=== PATIENT | female | born 1945 | race Caucasian/White ===

== ENCOUNTER 2023-12-04 04:00 | Emergency (ER) | payer SELFPAY ==
[2023-12-04] VITALS (15 sets, daily range): BP systolic 128–159; BP diastolic 68–123; PULSE 52–128; RESP 10–22; TEMP 36.1; O2SAT 96–100
[2023-12-04 04:29] LABS: BE (Venous) -1 mmol/L (-2-3); HCO3 (Venous) 24 mmol/L (23-28); O2 Sat (Venous) 93 %; TCO2 (Venous) 21 mmol/L (24-29); pCO2 (Venous) 41 mmHg (41-51); pH (Venous) 7.38 (7.31-7.41); pO2 (Venous) 67 mmHg
[2023-12-04 04:53] LABS: Abs Immature Grans 0.02 10^3/uL (0.0-0.06); Absolute Basophil Count 0.03 10^3/uL (0.0-0.2); Absolute Eosinophil Count 0.07 10^3/uL (0.0-0.7); Absolute Lymphocyte Count 1.86 10^3/uL (1.2-3.4); Absolute Monocyte Count 0.48 10^3/uL (0.1-0.8); Absolute Neutrophil Count 2.25 10^3/uL (1.2-6.7); Basophils % 0.6 %; Eosinophils % 1.5 %; HCT 43.2 % (36.0-46.0); HGB 15.1 g/dL (11.2-15.7); Immature Grans % 0.4 %; Lymphocytes % 39.5 %; MCH 32.6 pg (27.0-33.0); MCV 93 fL (80-95); MPV 9.5 fL (8.0-11.0); Monocytes % 10.2 %; Neutrophils % 47.8 %; Platelet Count 177 10^3/uL (130-400); RBC 4.63 10^6/uL (3.93-5.22); RDW 15.1 % (11.7-14.6); RDW-SD 51.8 fL; WBC 4.71 10^3/uL (4.4-10.8)
[2023-12-04 05:00] LABS: ALT 19 U/L (14-59); AST 28 U/L (15-37); Albumin 3.3 g/dL (3.4-5.0); Alkaline Phosphatase 59 U/L (46-116); Anion Gap 8.5 mmol/L (3-11); BUN 12 mg/dL (7-18); Bilirubin, Total 0.94 mg/dL (0.2-1.0); CO2 26.5 mmol/L (21.0-32.0); CREATININE 0.9 mg/dL (0.55-1.02); Calcium 8.3 mg/dL (8.5-10.1); Chloride 108 mmol/L (98-107); ETHANOL BLOOD 221.4 mg/dL (<10); Estimated GFR 65.03 (mL/min/1.73m2); Glucose 104 mg/dL (74-106); Sodium 143 mmol/L (136-145); Total Protein 6.2 g/dL (6.4-8.2)
[2023-12-04 05:03] LABS: PTT Activated 22.9 sec (23.6-32.8); Prothrombin Time 10.3 sec (9.1-11.1)
--- NOTE | 2023-12-04 05:08 | W.ED.GENAD ---
Discharge Plan Disposition Patient Disposition: Home Condition: Stable Discharge Details Clinical Impression: Alcohol intoxication Primary Care Provider: Unknown,Unknown ED Provider: Morris Banks Home Meds and New Rx's Prescriptions: No Action Eliquis 5 mg tablet 5 mg PO BID Discharge Instructions Instructions: Minor Head Injury, Adult ED Additional Instructions: At this time you have an elevated alcohol level. Your CAT scans show no evidence of bleeds in your brain, stroke, trauma to your chest, or fractures. We have attempted to call the numbers you provided, unfortunately no one is able to pick you up at this time. For your safety we will recommend transition to the sobriety area with the state police. You do have evidence of contusion and mild bruises from your fall. Please take Tylenol as needed for pain. You will likely be sore over the next day or so. Please do your best to cut down on alcohol intake. If you notice any worsening of your symptoms, or any new symptoms such as vomiting, diarrhea, fever, chills, shortness of breath, chest pain, numbness, weakness, or fainting , please return immediately to the emergency department for reevaluation. Please follow up with your primary care provider as soon as possible for reassessment and reevaluation. As always, it was a pleasure participating in your medical care today. HPI General Date/Time Provider Initiated Documentation: 12/04/23 04:08. HPI Narrative: This is a 78-year-old female who is new to our facility with a past medical history of atrial fibrillation on Eliquis, hypertension on metoprolol and amlodipine, depression, irritable bowel syndrome, osteoarthritis, [place] syndrome, obstructive sleep apnea, who presents today for medical evaluation after a fall. Patient reports that she is currently going through divorce, and tonight drank quite enough alcohol. She is not willing to give more specifics. She was found driving down the wrong direction of the interstate, she was pulled over by police. While doing the sobriety test she was standing and holding onto the vehicle, when she let go of the vehicle she then fell down from a standing position on the angled side of the embankment and landed on her right head right shoulder and right chest. She had no loss of consciousness. There is no motor vehicle accident prior to this. She denies any complaints at this time. She was placed in a c-collar and brought to the ER by EMS for further assessment. She states she has been taking her anticoagulant as directed. She denies any other modifying factors. She denies any drug use. No other complaints at this time. Related Data Home Medications ?Medication ?Instructions ?Recorded ?Confirmed apixaban 5 mg tablet (Eliquis) 5 mg PO BID 12/04/23 12/04/23 Allergies Allergy/AdvReac Type Severity Reaction Status Date / Time meperidine (From Demerol) Allergy Unknown Verified 12/04/23 04:08 morphine Allergy Unknown Verified 12/04/23 04:08 General Stated Complaint: Fall/Non TraumaCriteria KENDALL: 3 Review of Systems All systems reviewed & are unremarkable except as noted in HPI and below Exam Narrative Exam Narrative: 1.Const: Well-nourished, Well-developed, appearing stated age 2.Eyes: PERRL, no conjunctival injection, and symmetrical lids. 3.ENT: Atraumatic external nose and ears. Moist MM. Neck: Symmetric, trachea midline, No thyromegaly. There is no evidence of raccoon eyes, robertson sign, CSF rhinorrhea, mastoid tenderness, cranial crepitus, hemotympanum, exophthalmos, or hyphema. Patient demonstrates intact dentition with no signs of tooth avulsion or fracture, no signs of jaw deformity, no evidence of a LeFort's fracture, with an intact palate, nose and orbital region. There is no evidence of a nasal septal hematoma. No proptosis. Jaw closes symmetrically. Airway is clear. 4.CVS: Regular rate and rhythm, Normal s1 and s2. No murmurs, carotid bruits, rubs, or gallops. Radial pulses 2+ bilaterally and symmetric. Dorsalis pedis pulses 2+ bilaterally and symmetric. 2+ capillary refill. No evidence of distant heart sounds. No extremity edema. No evidence of gross hemorrhage. 5.RESP: Airway clear, no obstructions. No abrasions or ecchymosis. Chest movement symmetric with respirations. No chest wall tenderness. Trachea midline. No crepitus. No step offs. No paradoxical movements. Lungs are clear to auscultation bilaterally. No rales, rhonchi, wheezing or stridor. Breath sound symmetric. No Sucking chest wounds. No clinical evidence of significant chest trauma. 6.GI: Soft, nondistended, nontender. Bowel tones normoactive. No masses or organomegaly. No ecchymosis or abrasions. No periumbilical ecchymosis or seatbelt sign. No flank or CVA tenderness. No clinical signs of significant trauma. G No clinical evidence of significant abdominal trauma. 7.MSK: No gross deformities or discolorations or lesions. Tolerates full range of motion of extremities without tenderness. All compartments of upper and lower extremities are soft. Minimal tenderness over the right shoulder, as well as the right ribs. Hips are stable. Vascular exam demonstrates brisk capillary refill and intact pulses in all extremities. Pelvic exam demonstrates a stable pelvis, nontender to lateral compression and palpation of symphysis pubis. No pain with logroll of the legs bilaterally. No clinical evidence of significant musculoskeletal trauma. No midline cervical thoracic or lumbar spine tenderness. 8.Skin: Warm, Dry. No rashes or lesions. 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 Sensation grossly intact, no focal neurologic deficits. 10.Psych: (AAO) x3. Appropriate mood and affect, although she does appear slightly intoxicated. Course Vital Signs Vital signs: Vital Signs Temperature 36.1 C L 12/04/23 03:59 Pulse 113 H 12/04/23 03:59 Respiratory Rate 13 12/04/23 03:59 Blood Pressure 153/106 H 12/04/23 03:59 Pulse Oximetry 100 12/04/23 03:59 Temperature 36.1 C L 12/04/23 03:59 Temperature Source Temporal Artery Scan 12/04/23 03:59 Pulse 113 H 12/04/23 03:59 Respiratory Rate 13 12/04/23 03:59 Respiratory Effort Normal 12/04/23 04:09 Blood Pressure 153/106 H 12/04/23 03:59 Blood Pressure Position Supine 12/04/23 03:59 Pulse Oximetry 100 12/04/23 03:59 Oxygen Delivery Method Room Air 12/04/23 03:59 Oxygen Flow Rate 0 12/04/23 03:59 Pain Level 0 12/04/23 03:59 Lab/Test Results Lab/Test Results: Laboratory Tests Range/Units 12/04/23 04:20 WBC (4.4-10.8) 10^3/uL 4.71 RBC (3.93-5.22) 10^6/uL 4.63 Hgb (11.2-15.7) g/dL 15.1 Hct (36.0-46.0) % 43.2 MCV (80-95) fL 93 MCH (27.0-33.0) pg 32.6 MCHC (32.0-36.0) % 35.0 RDW (11.7-14.6) % 15.1 H Plt Count (130-400) 10^3/uL 177 MPV (8.0-11.0) fL 9.5 Immature Gran % % 0.4 Neutrophils % % 47.8 Lymphocytes % % 39.5 Monocytes % % 10.2 Eosinophils % % 1.5 Basophils % % 0.6 Nucleated RBC % (0.0-0.3) % 0.0 Absolute Neutrophils (1.2-6.7) 10^3/uL 2.25 Absolute Lymphocytes (1.2-3.4) 10^3/uL 1.86 Absolute Monocytes (0.1-0.8) 10^3/uL 0.48 Absolute Eosinophils (0.0-0.7) 10^3/uL 0.07 Absolute Basophils (0.0-0.2) 10^3/uL 0.03 VBG pH (7.31-7.41) 7.38 VBG pCO2 (41-51) mmHg 41 VBG pO2 mmHg 67 VBG HCO3 (23-28) mmol/L 24 VBG Total CO2 (24-29) mmol/L 21 L VBG O2 Saturation % 93 VBG Base Excess (-2-3) mmol/L -1 Medical Decision Making This is a 78-year-old female who is new to our facility with a past medical history of atrial fibrillation on Eliquis, hypertension on metoprolol and amlodipine, depression, irritable bowel syndrome, osteoarthritis, [place] syndrome, obstructive sleep apnea, who presents today for medical evaluation after a fall. Patient reports that she is currently going through divorce, and tonight drank quite enough alcohol. She is not willing to give more specifics. She was found driving down the wrong direction of the interstate, she was pulled over by police. While doing the sobriety test she was standing and holding onto the vehicle, when she let go of the vehicle she then fell down from a standing position on the angled side of the embankment and landed on her right head right shoulder and right chest. She had no loss of consciousness. There is no motor vehicle accident prior to this. She denies any complaints at this time. She was placed in a c-collar and brought to the ER by EMS for further assessment. She states she has been taking her anticoagulant as directed. She denies any other modifying factors. She denies any drug use. No other complaints at this time. Exam demonstrates well-appearing but slightly intoxicated female, mild bruising over her right head but no hematoma. Minimal shoulder achiness, mild right-sided rib tenderness, no hip tenderness or displacement. No gross deformities. Concern for rib fracture, and contusions in the shoulder. Obviously there is also concern for potential head bleed secondary to her blood thinner use and the mechanism. No other signs of trauma at this time. Doubt infection, I suspect the cause of her mild confusion at this time is an intracranial etiology or alcohol intoxication. Will get CT imaging to further define any signs of trauma, will gently rehydrate, monitor closely and reassess. 6:16 AM Laboratory workup has returned, no white count bandemia or left shift. Electrolytes stable, VBG shows no acidosis or hypercarbia. Renal function normal. Alcohol level is notably elevated at 221, acetaminophen and salicylate levels are normal. CT scan of the head neck chest abdomen pelvis and face is negative for acute process or fracture per virtual radiology. We did get the patient up, and she ambulated well. Secondary trauma survey shows no new tenderness. She moves all extremities well, no focal tenderness over ribs chest shoulders. She demonstrates normal neurologic exam otherwise but does appear slightly intoxicated still. She does ambulate well, no ataxic gait, no focal neurologic deficits. At this stage patient is medically cleared however she is still intoxicated. Patient states that she does not have anyone that could help her come bring her home. She is not willing to provide any other additional names or numbers for contact she resides in [facility]. Police are here at this time, and will take her to the sobriety area. Patient at this time demonstrates hemodynamic stability, no evidence of stroke or acute process. No evidence of intracranial bleed on CT imaging. Patient is intoxicated though. Discussed red flags which to return. Patient will be discharged in police custody. I have extensively reviewed the treatment plan and discharge instructions with the patient. I have addressed all patient concerns at this time. The patient was made aware of what symptoms to monitor for that would warrant a return to the emergency department. Discussed the plan with the patient, they demonstrate verbal understanding and agreement with our assessment and plan at this time. The documentation in this chart was dictated using [employer] dictation software. Please excuse any dictation errors. FINDINGS: Lungs: Mild lingular ground-glass which is nonspecific. Few scattered right lower lobe granuloma. Atelectasis/scarring of the bilateral lower lung pritchett. Pleural spaces: Unremarkable. No pneumothorax. No pleural effusion. Heart: Fluid within the pericardial recesses. Coronary arteries: No significant coronary calcified atherosclerotic disease. Lymph nodes: Unremarkable. No enlarged lymph nodes. Vasculature: Calcified atherosclerotic disease of the visualized aorta and its major thoracic branches. Bones/joints: Unremarkable. No acute fracture. Soft tissues: Unremarkable. IMPRESSION: No acute thoracic findings. Additional findings as above. FINDINGS: Liver: Normal. No mass. Gallbladder and biliary ducts: Normal. No calcified stones. No ductal dilation. Pancreas: Mild atrophy of the pancreas. Spleen: Normal. No splenomegaly. Adrenal glands: Normal. No mass. Kidneys and ureters: Symmetric bilateral renal cortical atrophy. Stomach and bowel: Moderate to severe colonic stool burden. Appendix: No evidence of appendicitis. Intraperitoneal space: Unremarkable. No free air. No significant fluid collection. Vasculature: Atherosclerotic disease of the abdominal aorta and its major branches. Lymph nodes: Unremarkable. No enlarged lymph nodes. Urinary bladder: Bladder is distended. Reproductive: Unremarkable as visualized. Bones/joints: Unremarkable. No acute fracture. Soft tissues: Unremarkable. IMPRESSION: 1. No acute intra-abdominal findings. 2. Additional findings as above. Thank you for allowing us to participate in the care of your patient. Dictated and Authenticated by: Kenneth Morrow DO 12/04/2023 5:54 AM Eastern Time ([place] & [place]) FINDINGS: Brain: Periventricular white matter lucencies compatible with chronic microvascular ischemic changes. 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 No intracranial hemorrhage. No mass effect or midline shift. Cerebral ventricles: The ventricles and sulci are prominent compatible with age-related involutional changes. Paranasal sinuses: Visualized sinuses are unremarkable. No fluid levels. Mastoid air cells: Visualized mastoid air cells are well aerated. Bones: Unremarkable. No acute fracture. Soft tissues: Unremarkable. IMPRESSION: No acute intracranial findings. FINDINGS: No acute fracture or dislocation. The orbits and globes are intact bilaterally.The mandible is intact. The alignment of the temporomandibular joints is maintained bilaterally. IMPRESSION: No acute fracture. FINDINGS: Bones: Normal alignment. No acute fracture or subluxation. Multilevel facet arthritis on the left. Soft tissues: Unremarkable. IMPRESSION: No fracture. Thank you for allowing us to participate in the care of your patient. Dictated and Authenticated by: Álvaro Fernandez MD 12/04/2023 5:59 AM Eastern Time ([place] & [place]) Quality:SDOH Health Related Social Needs: No Data to Display PFSH All Active Problems (Updated 12/04/23 @ 06:21 by Morris aBnks DO) Alcohol intoxication (Acute) Social History Smoking risk assessment performed?: No PAWSS Have you Been Recently Intoxicated or Drunk Within the Last 30 days?: Yes Have you Ever Experienced Previous Episodes of Alcohol Withdrawal?: Unable to Obtain Have you ever Experienced Withdrawal Seizures?: Unable to Obtain Have you ever Experienced Delirium Tremens(DT)s?: Unable to Obtain Have you ever undergone Alcohol Rehabilitation Treatment (i.e, inpt ot outpatient treatment programs)?: Unable to Obtain Have you ever Experienced Blackouts?: Unable to Obtain Have you ever Combined Alcohol with other Downers within the last 90 days?: Unable to Obtain Have you ever Combined Alcohol with any other Substance of Abuse during the last 90 days?: Unable to Obtain Positive Blood Alcohol level on Presentation? [PCS.BAL]: Unable to Obtain Evidence of Increased Autonomic Activity (i.e. HR>120, tremor, sweating, agitation, nausea)?: Unable to Obtain Result: 1
[2023-12-04 05:23] LABS: Acetaminophen < 2 ug/mL (10-30); Salicylate < 2.8 mg/dL (<2.8)
[2023-12-04] MEDS: Normal Saline - Diluent 50 ML VIAL IJ (05:24)
[2023-12-04] MEDS: Omnipaque 350 MG/ML 100 ML BTL IJ (05:24)
--- NOTE | 2023-12-04 05:25 | DI.CT_ITS ---
Exam(s) CT CHEST/ABD/PEL W EXAM: CT CHEST/ABD/PEL W CLINICAL HISTORY: trauma, fall, thinners, hit right chest/abd. TECHNIQUE: Imaging Protocol: Axial computed tomography images with coronal and sagittal reformatted images were created and reviewed CONTRAST MATERIAL: Intravenous: Omnipaque 350 Contrast volume:100 ml Oral: None COMPARISON: No exams were available for comparison FINDINGS: CHEST: LUNGS: There are mild benign-appearing subpleural increased markings in lateral basal segment of the right lower lobe. No prominent lung contusion or pleural effusion or pneumothorax. There are a few benign calcified granulomas in the right lung also noted.. Mild increased markings also noted in the superior lingular segment of the left lung. No significant focal findings in the trachea and mainst em bronchi. MEDIASTINUM: No evidence of sternal fracture nor mediastinal hematoma. No intrathoracic adenopathy. Visualized thyroid appears unremarkable. CARDIAC: Mild cardiomegaly. No pericardial effusion.Thoracic aorta appears unremarkable. Normal siz e. No dissection. OSSEOUS: No rib fractures evident. No vertebral compressionfractures. No significant osseous lesion s.. ABDOMEN: There is no ascites. There is no evidence of mesenteric nor bowel wall hematoma. LIVER: Normal size. No laceration. No lesions. No dilated intrahepatic ducts. GALLBLADDER/BILIARY: No obvious gallbladder pathology. CBD is not dilated. PANCREAS: No evidence of pancreatic mass nor dilatation of the pancreatic duct. SPLEEN: Normal size. No lacerations. No lesions. Splenic and portal veins are patent. ADRENALS: There are no significant adrenal masses. KIDNEYS: No lacerations nor subcapsular hematomas.. No ominous solid lesions. Small sub cm benign c yst in the posterior cortex left kidney which does not require workup. Even smaller benign cyst in t he lateral cortex of the right kidney noted, also not requiring further imaging workup. ABDOMINAL AORTA: Intact. Abdominal aorta is not enlarged. Iliac arteries unremarkable. Common femo ral arteries unremarkable. LYMPH NODES: There is no retroperitoneal nor paraaortic adenopathy. ABDOMINAL WALL: No evidence of significant anterior abdominal wall nor inguinal hernia. No evidence of subcutaneous bruising/hematomas nor chest wall/abdominal wall hematomas. GI: There is no evidence of bowel obstruction.No evidence of bowel wall hematoma. PELVIS: LYMPH NODES: There is no intrapelvic nor inguinal adenopathy. GI: No evidence of appendicitis.No evidence of sigmoid diverticulitis. URINARY BLADDER: Intact-unremarkable. REPRODUCTIVE: Uterus size age-appropriate. No abnormal adnexal masses and no free fluid in the pelvi s. OSSEOUS: No evidence of pelvic/sacral fractures. No hip fractures. SI joints unremarkable. Degener ative facet arthropathy noted in lower lumbar spine. Mild disc space narrowing L5-S1. No listhesis. No pars defects. Also some disc space narrowing at L2-3. No fracture IMPRESSION: 1. No significant acute trauma sequelae in the chest, abdomen, and pelvis. 2. Mild increased benign-appearing subpleural markings noted in the lateral basal segment right lower lobe and superior lingular segment of the left lung. No pleural effusions. No pneumothorax. No ri b fractures. 3. Incidentally noted is some air within central venous structures most probably related to the IV co ntrast injection. First read by [facility]. RADIATION DOSE DELIVERED: Total DLP DATA REPOSITORY: All CT scans at this facility are submitted to the National Radiology Data Registry (NRDR) Dose Index Registry (DIR) with the [employer] (A[employer]). RADIATION OPTIMIZATION: All CT scans at this facility use at least one of these dose optimization te chniques: automated exposure control; mA and/or kV adjustment per patient size (includes targeted exa ms where dose is matched to clinical indication); or iterative reconstruction.
--- NOTE | 2023-12-04 05:26 | DI.CT_ITS ---
Exam(s) CT HEAD CERV SPINE FACIAL WO EXAM: CT HEAD CERV SPINE FACIAL WO CLINICAL HISTORY: fall, on thinners, eval for bleed. TECHNIQUE: Imaging Protocol: Axial computed tomography images with coronal and sagittal reformatted images were created and reviewed COMPARISON: No exams were available for comparison FINDINGS: There is artifact from the patient's dental work. CT Head: Ventricles and Extra axial spaces: Normal in size and morphology for the patient's age. Hemorrhage: None. Cerebral parenchyma: There is a lacunar infarct in the right basal ganglia. Subtle areas of decrease d attenuation are seen in the white matter consistent chronic microvascular ischemic disease. No mid line shift is present. Midline shift: None. Brainstem/Cerebellum: Normal. Calvarium: Normal. Visualized Paranasal sinuses/Mastoids: Clear. Soft Tissues: Unremarkable. CT Face: Facial Bones: No definite fracture is noted in facial bones. Sinuses and Mastoids: Unremarkable. Globes, extraocular muscles, optic nerves and retrobulbar fat: Normal. Upper aerodigestive tract: Normal. Mandible and bilateral temporomandibular joints: Normal. Soft tissues: Normal. CT Cervical Spine: Bones: No acute fracture or subluxation. Age-appropriate degenerative changes are seen in the cervica l spine. Soft Tissues: Unremarkable. Lung Apices: Clear. IMPRESSION: 1. No acute intracranial process. 2. No acute fracture or subluxation in the cervical spine. 3. No acute facial fracture. RADIATION DOSE DELIVERED: Total DLP DATA REPOSITORY: All CT scans at this facility are submitted to the National Radiology Data Registry (NRDR) Dose Index Registry (DIR) with the [employer] ([employer]). RADIATION OPTIMIZATION: All CT scans at this facility use at least one of these dose optimization te chniques: automated exposure control; mA and/or kV adjustment per patient size (includes targeted exa ms where dose is matched to clinical indication); or iterative reconstruction.
[2023-12-04] MEDS: Normal Saline 500 ML IV (05:27)
--- NOTE | 2023-12-04 05:29 | NUR.NOTE ---
Patient has a external urinary catheter for voiding purposes.
--- NOTE | 2023-12-04 05:55 | DI.VRAD_ITS ---
PROCEDURE INFORMATION: Exam: CT Chest With Contrast; Diagnostic Exam date and time: 12/04/2023 4:59 AM Age: 78 years old Clinical indication: Injury or trauma; Fall and other: Hit right chest/abd; Generalized; Blunt trauma (contusions or hematomas); Injury date: 12/04/23; Patient HX: Trauma, fall, thinners, hit right chest/abd TECHNIQUE: Imaging protocol: Diagnostic computed tomography of the chest with contrast. 3D rendering (Not supervised by radiologist): MIP and/or 3D reconstructed images were created by the technologist. Radiation optimization: All CT scans at this facility use at least one of these dose optimization techniques: automated exposure control; mA and/or kV adjustment per patient size (includes targeted exams where dose is matched to clinical indication); or iterative reconstruction. Contrast material: [id number]; Contrast volume: 100 ml; Contrast route: INTRAVENOUS (IV); COMPARISON: CT HEAD CERV SPINE FACIAL WO 12/04/2023 4:52 AM FINDINGS: Lungs: Mild lingular ground-glass which is nonspecific. Few scattered right lower lobe granuloma. Atelectasis/scarring of the bilateral lower lung pritchett. Pleural spaces: Unremarkable. No pneumothorax. No pleural effusion. Heart: Fluid within the pericardial recesses. Coronary arteries: No significant coronary calcified atherosclerotic disease. Lymph nodes: Unremarkable. No enlarged lymph nodes. Vasculature: Calcified atherosclerotic disease of the visualized aorta and its major thoracic branches. Bones/joints: Unremarkable. No acute fracture. Soft tissues: Unremarkable. IMPRESSION: No acute thoracic findings. Additional findings as above. PROCEDURE INFORMATION: Exam: CT Abdomen And Pelvis With Contrast Exam date and time: 12/04/2023 4:59 AM Age: 78 years old Clinical indication: Injury or trauma; Fall and other: Hit right chest/abd; Generalized; Blunt trauma (contusions or hematomas); Injury date: 12/04/23; Patient HX: Trauma, fall, thinners, hit right chest/abd TECHNIQUE: Imaging protocol: Computed tomography of the abdomen and pelvis with contrast. 3D rendering (Not supervised by radiologist): MIP and/or 3D reconstructed images were created by the technologist. Radiation optimization: All CT scans at this facility use at least one of these dose optimization techniques: automated exposure control; mA and/or kV adjustment per patient size (includes targeted exams where dose is matched to clinical indication); or iterative reconstruction. Contrast material: [id number]; Contrast volume: 100 ml; Contrast route: INTRAVENOUS (IV); COMPARISON: No relevant prior studies available. FINDINGS: Liver: Normal. No mass. Gallbladder and biliary ducts: Normal. No calcified stones. No ductal dilation. Pancreas: Mild atrophy of the pancreas. Spleen: Normal. No splenomegaly. Adrenal glands: Normal. No mass. Kidneys and ureters: Symmetric bilateral renal cortical atrophy. Stomach and bowel: Moderate to severe colonic stool burden. Appendix: No evidence of appendicitis. Intraperitoneal space: Unremarkable. No free air. No significant fluid collection. Vasculature: Atherosclerotic disease of the abdominal aorta and its major branches. Lymph nodes: Unremarkable. No enlarged lymph nodes. Urinary bladder: Bladder is distended. Reproductive: Unremarkable as visualized. Bones/joints: Unremarkable. No acute fracture. Soft tissues: Unremarkable. IMPRESSION: 1. No acute intra-abdominal findings. 2. Additional findings as above. Dictated and Authenticated by: Kenneth Morrow MD. Ordering:JACK Caceres MD
--- NOTE | 2023-12-04 05:59 | DI.VRAD_ITS ---
PROCEDURE INFORMATION: Exam: CT Head Without Contrast Exam date and time: 12/04/2023 4:52 AM Age: 78 years old Clinical indication: Injury or trauma; Blunt trauma (contusions or hematomas); Forehead; Injury date: 12/04/23; Patient HX: Fall, on thinners, eval for bleed TECHNIQUE: Imaging protocol: Computed tomography of the head without contrast. Radiation optimization: All CT scans at this facility use at least one of these dose optimization techniques: automated exposure control; mA and/or kV adjustment per patient size (includes targeted exams where dose is matched to clinical indication); or iterative reconstruction. COMPARISON: No relevant prior studies available. FINDINGS: Brain: Periventricular white matter lucencies compatible with chronic microvascular ischemic changes. 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 No intracranial hemorrhage. No mass effect or midline shift. Cerebral ventricles: The ventricles and sulci are prominent compatible with age-related involutional changes. Paranasal sinuses: Visualized sinuses are unremarkable. No fluid levels. Mastoid air cells: Visualized mastoid air cells are well aerated. Bones: Unremarkable. No acute fracture. Soft tissues: Unremarkable. IMPRESSION: No acute intracranial findings. PROCEDURE INFORMATION: Exam: CT Maxillofacial Without Contrast Exam date and time: 12/04/2023 4:52 AM Age: 78 years old Clinical indication: Injury or trauma; Blunt trauma (contusions or hematomas); Forehead; Injury date: 12/04/23; Patient HX: Fall, on thinners, eval for bleed TECHNIQUE: Imaging protocol: Computed tomography of the face without contrast. Radiation optimization: All CT scans at this facility use at least one of these dose optimization techniques: automated exposure control; mA and/or kV adjustment per patient size (includes targeted exams where dose is matched to clinical indication); or iterative reconstruction. COMPARISON: No relevant prior studies available. FINDINGS: No acute fracture or dislocation. The orbits and globes are intact bilaterally.The mandible is intact. The alignment of the temporomandibular joints is maintained bilaterally. IMPRESSION: No acute fracture. PROCEDURE INFORMATION: Exam: CT Cervical Spine Without Contrast Exam date and time: 12/04/2023 4:52 AM Age: 78 years old Clinical indication: Injury or trauma; Blunt trauma (contusions or hematomas); Forehead; Injury date: 12/04/23; Patient HX: Fall, on thinners, eval for bleed TECHNIQUE: Imaging protocol: Computed tomography of the cervical spine without contrast. Radiation optimization: All CT scans at this facility use at least one of these dose optimization techniques: automated exposure control; mA and/or kV adjustment per patient size (includes targeted exams where dose is matched to clinical indication); or iterative reconstruction. COMPARISON: No relevant prior studies available. FINDINGS: Bones: Normal alignment. No acute fracture or subluxation. Multilevel facet arthritis on the left. Soft tissues: Unremarkable. IMPRESSION: No fracture. Dictated and Authenticated by: Álvaro Fernandez MD. Ordering:JACK Caceres MD
[2023-12-04 06:14] LABS: Bilirubin Negative (Negative); Blood Negative (Negative); Clarity Sl Cloudy (Clear); Glucose Negative (Negative); Ketones Negative (Negative); Leukocyte Esterase Trace (Negative); Nitrite Negative (Negative); Specific Gravity 1.015 (1.005-1.025); Urobilinogen 0.2 mg/dL (Up to 0.2)
[2023-12-04 06:19] LABS: Bacteria Rare HPF (Negative); C & S Indicated? No; Casts Negative LPF (Negative); Crystals Negative HPF (Negative); Epithelial Cells Rare HPF (Negative); Mucus Trace (Negative); RBC 0-2 HPF (0-2)
[2023-12-04 06:26] LABS: *AMPHETAMINES SCREEN URINE Negative (Negative); *BARBITURATES SCREEN URINE Negative (Negative); *BENZODIAZEPINES SCREEN URINE Negative (Negative); Cannabinoids THC Negative (Negative); Cocaine Screen,Urine Negative (Negative); METHADONE URINE SCREEN Negative (Negative); OPIATES URINE SCREEN Negative (Negative)
[2023-12-04 06:27] LABS: Tricyclic Antidepressants Negative (Negative)
== END 2023-12-04 07:12 | disposition home or self-care (01) ==
PROVIDERS: Emergency Provider Student in an Organized Health Care Education/Training Program
DX: F10.920 Alcohol use, unspecified with intoxication, uncomplicated (principal); Z79.01 Long term (current) use of anticoagulants; W19.XXXA Unspecified fall, initial encounter
CPT/HCPCS: 36415; 74177; 80053; 80307; 82805; 96360; 99285; 70450; 70486; 71260; 72125; 80320; 80329; 81003; 81015; 85025; 85610; 85730; 99283; J3490